=== PATIENT | female | born 1960 | race Caucasian/White ===

== ENCOUNTER 2023-03-09 08:54 | Outpatient (CLI) | payer MEDICAID, SELFPAY | END 2023-03-09 08:55 | disposition home or self-care (01) | PROVIDERS: PCP Orthopaedic Surgery Orthopaedic Surgery of the Spine; Visit Provider Family Medicine | DX: M54.16 Radiculopathy, lumbar region (principal); M51.36 Other intervertebral disc degeneration, lumbar region | CPT/HCPCS: 64483; J1100; Q9966 ==

== ENCOUNTER 2024-02-08 08:18 | Outpatient (CLI) | payer MEDICAID, SELFPAY | END 2024-02-08 08:19 | disposition home or self-care (01) | LOC: INJ CL 08:19 | PROVIDERS: PCP Family Medicine; Visit Provider Family Medicine | DX: M54.16 Radiculopathy, lumbar region (principal); M51.36 Other intervertebral disc degeneration, lumbar region | CPT/HCPCS: 64483; J1100; Q9966 ==

== ENCOUNTER 2024-06-05 09:55 | Day surgery (SDC) | payer MEDICAID, SELFPAY ==
[2024-06-05] VITALS (8 sets, daily range): BP systolic 117–167; BP diastolic 86–107; PULSE 62–78; RESP 16; TEMP 36.2–36.4; O2SAT 93–100; BMI 24.0
[2024-06-05] MEDS: LACTATED RINGERS 1000 ML 1,000 ML 100 ML IV (10:00)
[2024-06-05] MEDS: SODIUM CHLORIDE 0.9 % (FLUSH) 10 ML SYRINGE IVF (10:35)
--- NOTE | 2024-06-05 11:00 | CRLHL7_ITS ---
For Patients: As a result of the Cures Act, medical imaging exams and procedure reports are released immediately into your electronic medical record. You may view this report before your referring provider. If you have questions, please contact your health care provider. Indication: Left MPJ Fusion, Metatarsal Head Resection, Hammertoe Technique: Two fluoroscopic images of the left foot. Fluoroscopic time 13.1 seconds. IMPRESSION: Fluoroscopic guidance for 1st MTP fusion and hammertoe correction of the 2nd, 3rd and 4th toes. Resection of several metatarsal heads noted. Dictated by Mike Houston MD @ 06/06/2024 9:54:34 AM (Electronically Signed)
[2024-06-05] MEDS: MIDAZOLAM HCL 1 MG/ML inj IVP (12:30)
[2024-06-05] MEDS: fentaNYL 100 MCG/2 ML inj IVP (12:30)
--- NOTE | 2024-06-05 12:31 | SUR.PREOP ---
TIME?OUT:?1229 PT/Virginie Muse RN/Dr. [place] MDA?VERIFICATION?OF?SURGICAL?SITE left foot,?PROCEDURE,?AND?CONSENT OBTAINED?PRIOR?TO?INVASIVE?PROCEDURE.
[2024-06-05] MEDS: CEFAZOLIN 2 GM INJ IVP (13:02)
--- NOTE | 2024-06-05 14:46 | W.ANESCHARGE ---
Anesthesia Charges Start Date/Time Anesthesia Start Date: 06/05/24 Anesthesia Start Time: 12:52 Stop Date/Time Anesthesia Stop Date: 06/05/24 Anesthesia Stop Time: 15:26
--- NOTE | 2024-06-05 14:47 | W.PM.NB ---
Nerve Block Nerve Block Time Seen by Provider: 12:35 Type of block requested by surgeon for post-operative analgesia: popliteal Side: left Time out performed: Yes Verification of patient name: Yes Verification of date of : Yes Site marking: site marked Name of person performing procedure: [place] Continuous monitoring Was continuous monitoring of O2 sat, B/P, cook fast food, recorded every 15 minutes?: Yes Procedure Checklist: sterile prep, needles and gloves Ultrasound guided. Images saved: Yes Medications given in 5ml increments after negative aspiration: Marcaine %: 0.5 mL: 20 Needle gauge: 20 Patient tolerated procedure well: Yes Additional comments: Needle noted adjacent to nerve Block Charges Block Charge (with Pro Fee): Sciatic Nerve Use of Ultrasound Machine for Block: Yes- US Guidance/pain block
--- NOTE | 2024-06-05 14:48 | W.PM.NB ---
Nerve Block Nerve Block Time Seen by Provider: 12:35 Date Seen: 06/05/24 Type of block requested by surgeon for post-operative analgesia: adductor canal Side: left Time out performed: Yes Verification of patient name: Yes Verification of date of : Yes Site marking: site marked Name of person performing procedure: [place] Continuous monitoring Was continuous monitoring of O2 sat, B/P, substance abuse counselor, recorded every 15 minutes?: Yes Procedure Checklist: sterile prep, needles and gloves Ultrasound guided. Images saved: Yes Medications given in 5ml increments after negative aspiration: Ropivicaine %: 0.5 mL: 20 Needle gauge: 15 Patient tolerated procedure well: Yes Additional comments: Needle noted adjacent to nerve Block Charges Block Charge (with Pro Fee): Femoral Nerve Use of Ultrasound Machine for Block: Yes- US Guidance/pain block
--- NOTE | 2024-06-05 15:16 | SUR.OPER ---
elio balls in toes 2,3,4
--- NOTE | 2024-06-05 15:26 | W.ANESCHARGE ---
Anesthesia Charges Start Date/Time Anesthesia Start Date: 06/05/24 Anesthesia Start Time: 12:52 Stop Date/Time Anesthesia Stop Date: 06/05/24 Anesthesia Stop Time: 15:26
--- NOTE | 2024-06-05 15:27 | W.PM.PODPROC ---
Date of Procedure: 06/05/24 Surgeon: Ye Strickland DPM Pre-op Diagnosis: 1. Hallux valgus with bunion left 2. hammertoe deformity 2nd digit left 3. hammertoe deformity 3rd digit left 4. hammertoe deformity 4th digit left 5. metatarsalgia 2 through 5 left Post-op Diagnosis: 1. Hallux valgus with bunion left 2. hammertoe deformity 2nd digit left 3. hammertoe deformity 3rd digit left 4. hammertoe deformity 4th digit left 5. metatarsalgia 2 through 5 left Type of Procedure: 1. 1st MPJ fusion left 2. hammertoe correction 2nd digit left 3. hammertoe correction 3rd digit left 4. hammertoe correction 4th digit left 5. metatarsal head resection 2 through 5 left Indications: patient seen in clinic for ongoing severe foot pain due to deformity. She has failed outpatient surgery. She would like to proceed with surgical correction. I reviewed the procedure, recovery, expectation potential complications. These include but not limited to: Poor wound healing, infection, under correction, over correction, nonunion, delayed union, malunion, continued pain, potential need for future surgery, deep venous thrombosis, complex regional pain syndrome, pulmonary embolism possible . She understands risks written consent was obtained. Site marked . Procedure Description: Patient brought the operating room placed supine position on operating table. IV sedation was initiated. She had a preoperative popliteal and adductor block. she was prepped and draped in a sterile fashion. Standard time-out protocol followed. Left leg was exsanguinated the tourniquet inflated to 250 mm Hg. Dorsal linear incision made over the 1st metatarsophalangeal joint. Incision was carried down through skin subcutaneous tissues. A linear capsular and periosteal incision was made. enlarged bony prominence medially was resected. Guide pin was placed on metatarsal head and an 18 mm Reamer was used to remove the cartilage and subchondral bone. Guide pin was removed and placed in the base of the proximal phalanx of the corresponding 18 mm Reamer was used to remove the cartilage and subchondral bone. Area was fully irrigated normal sterile saline. Weightbearing was simulated with a metal lid and the hallux was positioned appropriately and pinned with a K-wire. C-arm confirmed position. 3.0 cannulated headless screw was placed from distal medial to proximal lateral. Excellent compression of the fusion site. Position remained excellent. Dorsal 6 hole 1st MPJ fusion plate was applied. Three 3.0 mm locking screws were placed distal and 2 locking screws proximal. an additional nonlocking screw was placed proximal. 1st metatarsal head was remodeled with a rotary bur. This wound was irrigated normal sterile saline. Joint capsule was repaired with 3-0 Vicryl. Subcutaneous tissues reapproximated 4-0 Monocryl and skin closed with 4-0 Prolene. Linear incision was made between the 2nd 3rd metatarsal heads. Blunt dissection was carried down to the 2nd metatarsal neck. The long extensor tendon was tenotomized. The 2nd MPJ was opened with McGlamary elevator was placed releasing plantar adhesions. Sagittal saw was used to resect the 2nd metatarsal head which was then removed. Through the same incision blunt dissection carried down to the 3rd metatarsal neck. Extensor tendon to the 3rd toe was released.The 3rd MPJ was opened and McGlamary elevator placed and plantar adhesions released. Third metatarsal head was then resected with a sagittal saw. Linear incision made of the dorsal aspect between the high 4th and 5th metatarsals. Blunt dissection carried down to the 4th metatarsal neck. The extensor tendon to the 4th toe released. The joint capsule was opened and McGlamry elevator placed releasing plantar adhesions. A sagittal saw was used to resect the 4th metatarsal head. Blunt dissection was then carried down to the 5th metatarsal neck. The 5th MPJ was opened in McGlamry elevator placed. The plantar adhesions released. Sagittal saw used to resect the head of the 5th metatarsal. All wounds were thoroughly irrigated normal sterile saline. Subcutaneous tissues reapproximated 4-0 Monocryl and skin closed with 4-0 Prolene. Linear incision was made over the PIPJ 2nd digit. Incision carried down through skin subcutaneous tissues. Extensor tendon and joint capsule exposed and a transverse incision made through these tissues. The medial and Lateral collateral ligaments released. the head of the proximal phalanx was exposed and a sagittal saw was used to resect the head of the proximal phalanx. Wound was irrigated normal sterile saline. A 0.062 K-wire was introduced in the base of the middle phalanx driven out through the tip of the toe. Was then driven retrogradely back into the proximal phalanx and continued on into the metatarsal shaft. This positioned 2nd toe optimally. C-arm confirmed position. The extensor tendon was remodeled and reapproximated with 4-0 Vicryl. Skin closed with 4-0 Prolene. K-wire was bent cut and capped. Linear incision was made over the PIPJ 3rd digit. Incision carried down through skin subcutaneous tissues. Extensor tendon and joint capsule exposed and a transverse incision made through these tissues. The medial and Lateral collateral ligaments released. the head of the proximal phalanx was exposed and a sagittal saw was used to resect the head of the proximal phalanx. Wound was irrigated normal sterile saline. A 0.062 K-wire was introduced in the base of the middle phalanx driven out through the tip of the toe. Was then driven retrogradely back into the proximal phalanx and continued on into the metatarsal shaft. This positioned 3rd toe optimally. C-arm confirmed position. The extensor tendon was remodeled and reapproximated with 4-0 Vicryl. Skin closed with 4-0 Prolene. K-wire was bent cut and capped. Linear incision was made over the PIPJ 4th digit. Incision carried down through skin subcutaneous tissues. Extensor tendon and joint capsule exposed and a transverse incision made through these tissues. The medial and Lateral collateral ligaments released. the head of the proximal phalanx was exposed and a sagittal saw was used to resect the head of the proximal phalanx. Wound was irrigated normal sterile saline. A 0.045 K-wire was introduced in the base of the middle phalanx driven out through the tip of the toe. Was then driven retrogradely back into the proximal phalanx. This positioned 4th toe optimally. C-arm confirmed position. The extensor tendon was remodeled and reapproximated with 4-0 Vicryl. Skin closed with 4-0 Prolene. K-wire was bent cut and capped. sterile dressing was applied. The tourniquet was released and normal capillary fill time returned to all digits. she was placed in a well-padded cam boot. Plantar portion of the liner of the boot was cut back to make sure that the pins were not under any pressure. She was transferred from OR to PACU vital signs stable vascular status intact. She was given both written and verbal postoperative instructions. She will follow-up in 2 days. He is weight-bearing to the heel in the Cam boot with crutches for transfers otherwise remain nonweightbearing. She is given Percocet for pain. She will start aspirin therapy in morning. complications: None apparent. Anesthesia: MAC and regional Hemostasis: ankle Estimated blood loss (mL): 5 Implants: Arthrex 1st MPJ fusion plate x1, 3.0 mm locking screws times 5 and 3.0 mmnonlocking screw x1, 3.0 mm cannulated headless screw x1, 0.062 K-wire x2 and 0.045 smooth K-wire x1 Specimens: none sent Disposition: same day
--- NOTE | 2024-06-05 16:15 | REH.PT ---
Pt was fitted for crutches and issued for home use. Instructed pt in gt level surfaces with 1 and 2 crutches, basic transfers and verbally instructed in stairs sequence and car transfers. Goals of PT were met. DC. No Charge
== END 2024-06-05 16:15 | disposition home or self-care (01) ==
LOC: OR 09:57
PROVIDERS: PCP Family Medicine; Visit Provider Podiatrist
PROC: (CPT 28740; principal; 2024-06-05 11:00)
PROC: (CPT 28285; 2024-06-05 11:00)
DX: M20.12 Hallux valgus (acquired), left foot (principal); M20.42 Other hammer toe(s) (acquired), left foot; M21.612 Bunion of left foot; M77.42 Metatarsalgia, left foot; G89.18 Other acute postprocedural pain
CPT/HCPCS: 28750; 28285 ×3; 28114; 01480; 64445; 64447; 73620; 76000; 76942; C1713; J0665; J0690; J2250; J2704; J2795; J3010; J3490; J7120

== ENCOUNTER 2024-11-06 11:16 | Day surgery (SDC) | payer MEDICAID, SELFPAY ==
[2024-11-06] VITALS (8 sets, daily range): BP systolic 120–150; BP diastolic 80–94; PULSE 61–70; RESP 16; TEMP 36.3–36.6; O2SAT 95–98; BMI 25.0
[2024-11-06] MEDS: 0.9 % SODIUM CHLORIDE 500 ML 500 ML 100 ML IV (11:51)
[2024-11-06] MEDS: SODIUM CHLORIDE 0.9 % (FLUSH) 10 ML SYRINGE IVF (11:51)
[2024-11-06] MEDS: fentaNYL 100 MCG/2 ML inj IVP (12:09)
[2024-11-06] MEDS: MIDAZOLAM HCL 1 MG/ML inj IVP (12:09)
--- NOTE | 2024-11-06 12:16 | SUR.PREOP ---
TIME?OUT:?1208 PT/RN/MDA?VERIFICATION?OF?SURGICAL?SITE Right Foot,?PROCEDURE Nerve Block,?AND?CONSENT OBTAINED?PRIOR?TO?INVASIVE?PROCEDURE.
--- NOTE | 2024-11-06 12:30 | CRLHL7_ITS ---
For Patients: As a result of the Cures Act, medical imaging exams and procedure reports are released immediately into your electronic medical record. You may view this report before your referring provider. If you have questions, please contact your health care provider. Indication: Right 1st MPJ Fusion, Stefan Osteotomy, Hammertoe Correction Technique: Two fluoroscopic images of the right forefoot. Fluoroscopic time 14.4 seconds. IMPRESSION: Fluoroscopic guidance for 1st MTP fusion and hammertoe correction procedure involving the 2nd and 3rd toes. Dictated by Mike Houston MD @ 11/07/2024 11:09:57 AM (Electronically Signed)
--- NOTE | 2024-11-06 12:31 | P.NB_ITS ---
Nerve Block Nerve Block Time Seen by Provider: 12:12 Date Seen: 11/06/24 Type of block requested by surgeon for post-operative analgesia: popliteal Side: right Time out performed: Yes Verification of patient name: Yes Verification of date of : Yes Site marking: site marked Name of person performing procedure: [place] Continuous monitoring Was continuous monitoring of O2 sat, B/P, library monitor, recorded every 15 minutes?: Yes Procedure Checklist: sterile prep, needles and gloves Ultrasound guided. Images saved: Yes Medications given in 5ml increments after negative aspiration: Marcaine %: 0.25 mL: 20 Needle gauge: 20 Patient tolerated procedure well: Yes Additional comments: Needle noted adjacent to nerve Block Charges Block Charge (with Pro Fee): Sciatic Nerve Use of Ultrasound Machine for Block: Yes- US Guidance/pain block
--- NOTE | 2024-11-06 12:32 | W.PM.NB ---
Nerve Block Nerve Block Time Seen by Provider: 12:12 Date Seen: 11/06/24 Type of block requested by surgeon for post-operative analgesia: adductor canal Side: right Time out performed: Yes Verification of patient name: Yes Verification of date of : Yes Site marking: site marked Name of person performing procedure: [place] Continuous monitoring Was continuous monitoring of O2 sat, B/P, jewelry drilling machine operator, recorded every 15 minutes?: Yes Procedure Checklist: sterile prep, needles and gloves Ultrasound guided. Images saved: Yes Medications given in 5ml increments after negative aspiration: Marcaine %: 0.25 mL: 15 Needle gauge: 20 Precedex (mcg): 25 Patient tolerated procedure well: Yes Block Charges Block Charge (with Pro Fee): Femoral Nerve Use of Ultrasound Machine for Block: Yes- US Guidance/pain block
--- NOTE | 2024-11-06 12:32 | W.ANESCHARGE ---
Anesthesia Charges Start Date/Time Anesthesia Start Date: 11/06/24 Anesthesia Start Time: 13:27 Stop Date/Time Anesthesia Stop Date: 11/06/24 Anesthesia Stop Time: 15:45
[2024-11-06] MEDS: CEFAZOLIN 2 GM INJ IVP (13:38)
--- NOTE | 2024-11-06 15:48 | W.ANESCHARGE ---
Anesthesia Charges Start Date/Time Anesthesia Start Date: 11/06/24 Anesthesia Start Time: 13:27 Stop Date/Time Anesthesia Stop Date: 11/06/24 Anesthesia Stop Time: 15:48
--- NOTE | 2024-11-06 16:13 | W.PODPROC_ITS ---
Date of Procedure: 11/06/24 Surgeon: Ye Strickland DPM Pre-op Diagnosis: 1. Hallux valgus with bunion right 2. Hammertoe deformity 2nd digit right 3. Hammertoe deformity 3rd digit right 4. Hammertoe deformity 4th and 5th digits right 5. Metatarsalgia right Post-op Diagnosis: 1. Hallux valgus with bunion right 2. Hammertoe deformity 2nd digit right 3. Hammertoe deformity 3rd digit right 4. Hammertoe deformity 4th and 5th digits right 5. Metatarsalgia right Type of Procedure: 1. First MPJ fusion right 2. Stefan osteotomy 2nd metatarsal right 3. Stefan osteotomy 3rd metatarsal right 4. Hammertoe correction 2nd digit right 5. Hammertoe correction 3rd digit right 6. Extensor tenotomy 4th and 5th toes of right Indications: Patient presents for planned right foot reconstruction. She has had pain for multiple years and has recently had left foot reconstruction. I reviewed the procedure, recovery, expectation potential complications. These include but are not limited to: Poor wound healing, infection, under correction, over correction, nonunion, delayed union, malunion, continued pain, hardware irritation, nerve injury, potential need for future surgery, deep venous thrombosis, pulmonary embolism and possible . She understands risks written consent was obtained. Site marked. Procedure Description: Patient is brought into the operating room and placed in supine position on operating room table. She had a preoperative popliteal and adductor block by Anesthesia. She was placed under MAC anesthesia. She was then prepped and draped in sterile fashion. Standard time-out protocol followed. Right foot was exsanguinated the tourniquet inflated. Procedure 1: Dorsomedial curvilinear incision was made over the 1st metatarsophalangeal joint. The incision was carried down through skin subcutaneous tissues. Periosteal incision was then made in line with the incision and these tissues reflected away from the head of the 1st metatarsal and base of proximal phalanx. Guide pin was placed in the 1st metatarsal head and a 18 mm Reamer was used to remove cartilage and subchondral bone. Guide pin was removed and placed in the base of proximal phalanx and the corresponding 18 mm Reamer was used to remove cartilage and subchondral bone. Area was irrigated normal sterile saline. Opposing fusion sites were fenestrated. Weightbearing was simulated with a metal lid and the great toe positioned appropriately. Temporary fixation with a K-wire. C-arm confirmed excellent position. 3.0 mm partially-threaded cannulated headless screw was then inserted from distal medial to proximal lateral across the fusion site. Excellent compression noted across the fusion site. Position was found to be excellent. The dorsal 1st metatarsal head and fusion site remodeled with a rotary bur. A 6 hole 1st MPJ locking plate was then placed. Three 3.0 mm cortical locking screws were placed distal and two 3.0 mm cortical locking screws were placed proximal. An additional 3.0 mm cortical nonlocking screw was placed proximal. Fusion site 1st metatarsal head and phalangeal base were then remodeled with a rotary bur. C-arm confirmed excellent position. Wound was irrigated normal sterile saline. Capsular tissue was repaired with 3-0 Vicryl. Subcutaneous tissues reapproximated 4-0 Monocryl and skin closed with 4-0 Prolene. Procedure 2: Linear incision was made between the 2nd 3rd metatarsal distally. Incision was carried down through skin subcutaneous tissues. Blunt dissection was carried down to the 2nd metatarsophalangeal joint. The extensor tendons were transected and the joint capsule was transected. The mediolateral collateral ligaments were also released. A Stefan osteotomy was then performed of the 2nd metatarsal. The capital fragment was transposed proximally and laterally and then fixated with a 12 mm by 2.0 mm twist off screw. Dorsal overhang was removed with a rongeur. The medial joint capsule was repaired with 3-0 Vicryl pulling the 2nd toe into a rectus alignment. Procedure 3: Through the same incision blunt dissection was carried laterally to the 3rd metatarsophalangeal joint. The extensor tendons were transected and the joint capsule was transected. The mediolateral collateral ligaments were also released. A Stefan osteotomy was then performed of the 2nd metatarsal. The capital fragment was transposed proximally and laterally and then fixated with a 12 mm by 2.0 mm twist off screw. Dorsal overhang was removed with a rongeur. Wounds were irrigated with normal sterile saline. Subcutaneous tissues reapproximated 4-0 Monocryl skin closed with 4-0 Prolene. Procedure 4: Linear incision was made over the PIPJ of the 2nd digit right foot. Incision was carried down through skin subcutaneous tissues. Transverse incision made through the extensor tendon, joint capsule, medial and lateral collateral ligaments. Head of the proximal phalanx was exposed and removed with a oscillating saw. The base of the middle phalanx was removed with the oscillating saw. 0.0 5 4 smooth K-wire was introduced to the base of the middle phalanx and driven out through the tip of the toe. Fusion site was held perfectly aligned and the pin driven retrogradely into the proximal phalanx. C- arm confirmed appropriate position. K-wire was bent cut and capped. The extensor tendon was remodeled and repaired with 4-0 Vicryl. Skin closed with 4- 0 Prolene. Procedure 5: Linear incision was made over the PIPJ of the 3rd digit right foot. Incision was carried down through skin subcutaneous tissues. Transverse incision made through the extensor tendon, joint capsule, medial and lateral collateral ligaments. Head of the proximal phalanx was exposed and removed with a oscillating saw. The base of the middle phalanx was removed with the oscillating saw. 0.0 5 4 smooth K-wire was introduced to the base of the middle phalanx and driven out through the tip of the toe. Fusion site was held perfectly aligned and the pin driven retrogradely into the proximal phalanx. C- arm confirmed appropriate position. K-wire was bent cut and capped. The extensor tendon was remodeled and repaired with 4-0 Vicryl. Skin closed with 4- 0 Prolene. Procedure 6: Small stab incision was made between the extensor tendon to the 4th and 5th toes proximally MPJ. Blunt dissection was carried down and the extensor tendon to the 5th toe was isolated with a hemostat and transected. Blunt dissection was then carried down to the extensor tendon to the 4th toe which was isolated with a hemostat and transected. Incision was closed with 4-0 Prolene. Sterile dressing was applied. Tourniquet was released and normal capillary fill time returned all digits. She was placed in a well-padded cam boot. She was transferred from OR to same-day surgery with vital signs stable and vascular status intact. She was given both written and verbal postoperative instructions. She is weight-bearing as tolerated to the heel and the Cam boot. She is given Percocet for pain. She will stop taking the 7.5 mg Percocet and take 1-2 of the 5 mg Percocet as discussed. She will follow-up in 2 days. Anesthesia: MAC and regional Hemostasis: ankle Estimated blood loss (mL): 10 Implants: Arthrex 1st MPJ fusion plate x1, 3.0 mm cortical locking screws x5, 3.0 mm cortical nonlocking screw x1, 3.0 mm cannulated cancellous headless screw x1, 2.0 mm twist off screws x2, 0.054 smooth K-wires x2 Disposition: same day
== END 2024-11-06 16:23 | disposition home or self-care (01) ==
LOC: OR 11:17
PROVIDERS: PCP Family Medicine; Visit Provider Podiatrist
PROC: (CPT 28740; principal; 2024-11-06 12:30)
PROC: (CPT 28285; 2024-11-06 12:30)
DX: M20.11 Hallux valgus (acquired), right foot (principal); M21.611 Bunion of right foot; M20.41 Other hammer toe(s) (acquired), right foot; M77.41 Metatarsalgia, right foot; G89.18 Other acute postprocedural pain
CPT/HCPCS: 28750; 28285 ×4; 28309; 01480; 64445; 64447; 73620; 76000; 76942; A4580; C1713; J0665; J0690; J1100; J2250; J2405; J2704; J3010; J7030